=== PATIENT | female | born 1935 | race Caucasian/White ===

== ENCOUNTER 2019-03-31 16:33 | Emergency (ER) | payer OTHER ==
[~2019-03-31] VITALS: Ht 152.4 cm; Wt 83.9 kg
[2019-03-31 17:47] LABS: BASO % 0.6 % (0.0-1.0); EOS # 0.3 10*3/uL (0.0-0.4); EOS % 4.3 % (1.0-4.0); HEMATOCRIT 38.6 % (37.0-47.0); HEMOGLOBIN 12.6 g/dl (12.0-16.0); LYMPH # 1.6 10*3/uL (1.3-4.4); LYMPH % 22.4 % (27.0-41.0); MEAN CORPUSCULAR HGB 31.3 pg (27.0-31.0); MEAN CORPUSCULAR HGB CONC 32.6 g/dl (33.0-37.0); MEAN PLATELET VOLUME 10.5 fl (9.6-12.3); MONO # 0.6 10*3/uL (0.1-1.0); NEUT # 4.4 10*3/uL (2.3-7.9); NEUT % 63.3 % (47.0-73.0); PLATELET COUNT AUTOMATED 237 10*3/uL (130-400); RED BLOOD COUNT 4.02 10*6/uL (4.10-5.10); WHITE BLOOD COUNT 6.9 10*3/uL (4.8-10.8)
[2019-03-31 18:03] LABS: ALBUMIN 3.5 gm/dl (3.1-4.5); CREATININE 1.59 mg/dL (0.55-1.02); POTASSIUM 3.9 mmol/L (3.5-5.1); TOTAL PROTEIN 7.9 gm/dL (6.4-8.2)
== END 2019-03-31 19:06 | disposition home or self-care (01) ==
LOC: ED 16:33
PROVIDERS: Emergency Medicine
DX: J44.9 Chronic obstructive pulmonary disease, unspecified (principal); I10 Essential (primary) hypertension; E11.9 Type 2 diabetes mellitus without complications; I48.91 Unspecified atrial fibrillation; K21.9 Gastro-esophageal reflux disease without esophagitis; E03.9 Hypothyroidism, unspecified

== ENCOUNTER 2019-04-29 11:35 | Emergency (ER) | payer OTHER ==
[~2019-04-29] VITALS: Ht 154.9 cm; Wt 73.5 kg
[2019-04-29 12:32] LABS: BASO % 0.5 % (0.0-1.0); EOS # 0.2 10*3/uL (0.0-0.4); EOS % 4.2 % (1.0-4.0); HEMATOCRIT 39.8 % (37.0-47.0); HEMOGLOBIN 12.6 g/dl (12.0-16.0); LYMPH # 1.9 10*3/uL (1.3-4.4); MEAN CELL VOLUME 96.8 fl (81.0-99.0); MEAN CORPUSCULAR HGB 30.7 pg (27.0-31.0); MEAN CORPUSCULAR HGB CONC 31.7 g/dl (33.0-37.0); MEAN PLATELET VOLUME 10.1 fl (9.6-12.3); MONO # 0.6 10*3/uL (0.1-1.0); MONO % 10.8 % (3.0-9.0); NEUT # 2.9 10*3/uL (2.3-7.9); NEUT % 51.1 % (47.0-73.0); PLATELET COUNT AUTOMATED 358 10*3/uL (130-400); RED BLOOD COUNT 4.11 10*6/uL (4.10-5.10); RED CELL DISTRI WIDTH 14.4 % (0-14.5); WHITE BLOOD COUNT 5.7 10*3/uL (4.8-10.8)
[2019-04-29 12:49] LABS: ALBUMIN 3.4 gm/dl (3.1-4.5); CREATININE 1.45 mg/dL (0.55-1.02); POTASSIUM 4.9 mmol/L (3.5-5.1); TOTAL PROTEIN 7.2 gm/dL (6.4-8.2)
[2019-04-29 12:51] LABS: CPK 90 U/L (26-192)
[2019-04-29 12:52] LABS: TROPONIN I < 0.015 ng/ml (<0.045)
[2019-04-29 13:11] LABS: BILIRUBIN NEGATIVE (NEGATIVE); CLARITY SL CLOUDY (CLEAR); COLOR YELLOW (YELLOW); GLUCOSE NEGATIVE (NEGATIVE); KETONE NEGATIVE (NEGATIVE)
[2019-04-29 13:11] LABS: ABG BASE EXCESS 1.1 mmol/L (-2.0-2.0); ARTERIAL BLOOD GAS PH 7.393 (7.35-7.45)
[2019-04-29 13:12] LABS: BACTERIA TRACE; BLOOD NEGATIVE (NEGATIVE); LEUKO ESTERASE NEGATIVE (NEGATIVE); NITRITE NEGATIVE (NEGATIVE); RBC 0-2 rbc/hpf (0-2); SPECIFIC GRAVITY 1.025 (1.005-1.030); UROBILINOGEN 0.2 E.U./dl (0.2-1.0)
== END 2019-04-29 14:10 | disposition home or self-care (01) ==
LOC: ED 11:35
PROVIDERS: Emergency Medicine
DX: R44.1 Visual hallucinations (principal); R41.0 Disorientation, unspecified; M54.9 Dorsalgia, unspecified; R07.9 Chest pain, unspecified; J44.9 Chronic obstructive pulmonary disease, unspecified; E66.9 Obesity, unspecified; K21.9 Gastro-esophageal reflux disease without esophagitis; I11.0 Hypertensive heart disease with heart failure; I50.9 Heart failure, unspecified; E11.9 Type 2 diabetes mellitus without complications; I48.91 Unspecified atrial fibrillation; E03.9 Hypothyroidism, unspecified; Z91.041 Radiographic dye allergy status; W19.XXXA Unspecified fall, initial encounter; Y93.89 Activity, other specified; Y92.128 Other place in nursing home as the place of occurrence of the external cause; Y99.8 Other external cause status

== ENCOUNTER 2019-05-11 20:51 | Emergency (ER) | payer OTHER ==
[~2019-05-11] VITALS: Ht 162.5 cm; Wt 90.8 kg
== END 2019-05-11 21:30 | disposition home or self-care (01) ==
LOC: ED 20:51
DX: R00.1 Bradycardia, unspecified (principal); L98.9 Disorder of the skin and subcutaneous tissue, unspecified; J44.9 Chronic obstructive pulmonary disease, unspecified; I10 Essential (primary) hypertension; K21.9 Gastro-esophageal reflux disease without esophagitis; E11.9 Type 2 diabetes mellitus without complications; I48.91 Unspecified atrial fibrillation; E03.9 Hypothyroidism, unspecified; Z91.041 Radiographic dye allergy status

== ENCOUNTER 2019-09-13 17:24 | Inpatient (IN) | payer OTHER ==
[~2019-09-13] VITALS: Ht 154.9 cm; Wt 65.4 kg
[2019-09-13 17:38] LABS: ABG BASE EXCESS 1.2 mmol/L (-2.0-2.0); ARTERIAL BLOOD GAS PH 7.424 (7.35-7.45)
[2019-09-13 17:47] VITALS: BP 149/53
[2019-09-13 18:02] LABS: BASO # 0.1 10*3/uL (0.0-0.1); BASO % 0.6 % (0.0-1.0); EOS # 0.5 10*3/uL (0.0-0.4); HEMATOCRIT 44.1 % (37.0-47.0); LYMPH # 1.7 10*3/uL (1.3-4.4); LYMPH % 21.6 % (27.0-41.0); MEAN CELL VOLUME 92.3 fl (81.0-99.0); MEAN CORPUSCULAR HGB 29.5 pg (27.0-31.0); MEAN PLATELET VOLUME 10.5 fl (9.6-12.3); MONO # 0.6 10*3/uL (0.1-1.0); MONO % 7.5 % (3.0-9.0); NEUT # 4.9 10*3/uL (2.3-7.9); PLATELET COUNT AUTOMATED 245 10*3/uL (130-400); RED BLOOD COUNT 4.78 10*6/uL (4.10-5.10); RED CELL DISTRI WIDTH 16.6 % (0-14.5); WHITE BLOOD COUNT 7.7 10*3/uL (4.8-10.8)
[2019-09-13 18:13] LABS: ACT PARTIAL THROMBO TIME 26.8 SECONDS (20.0-32.1); INTERNATIONAL NORM RATIO 1.1 (2.0-3.5)
[2019-09-13 18:19] LABS: ALBUMIN 2.5 gm/dl (3.1-4.5); CREATININE 1.85 mg/dL (0.55-1.02); POTASSIUM 3.7 mmol/L (3.5-5.1); TOTAL PROTEIN 9.9 gm/dL (6.4-8.2); TROPONIN I 0.043 ng/ml (<0.045)
[2019-09-13 18:29] VITALS: BP 134/51
[2019-09-13 18:56] VITALS: BP 127/46
[2019-09-13 20:19] VITALS: BP 102/48
[2019-09-13 21:11] VITALS: BP 148/51
[2019-09-13] MEDS ORDERED: AMLODIPINE BESYL5 MG PO (22:34)
[2019-09-13] MEDS ORDERED: VENLAFAXINE H37.5 M5 PO (22:34)
[2019-09-13] MEDS ORDERED: LEVOTHYROXINE125 MCG PO (22:35)
[2019-09-13] MEDS ORDERED: Lopressor25 MG PO (22:36)
[2019-09-13] MEDS ORDERED: FUROSEMIDE40 MG PO (22:36)
[2019-09-13] MEDS ORDERED: JANUVIA50 MG PO (22:36)
[2019-09-13] MEDS ORDERED: FAMOTIDINE20 M1 PO (22:39)
[2019-09-13] MEDS ORDERED: AMIODARONE HYD200 MG PO (22:39)
[2019-09-13] MEDS ORDERED: SERTRALINE HYDR25 MG PO (22:40)
[2019-09-13] MEDS ORDERED: FLUTICASONE-SA1 EAC4 INH (22:43)
[2019-09-13] MEDS ORDERED: LOSARTAN POTASS50 M1 PO (22:44)
[2019-09-13] MEDS ORDERED: MELATONIN5 M1 PO (22:45)
[2019-09-13] MEDS ORDERED: FEROSUL325 M1 PO (22:46)
[2019-09-13] MEDS ORDERED: VITAMIN B-121000 MC2 PO (22:46)
[2019-09-13] MEDS ORDERED: ATORVASTATIN CA40 M1 PO (22:47)
[2019-09-13] MEDS ORDERED: TYLENOL325 M3 PO (22:49)
[2019-09-13] MEDS ORDERED: ARTIFICIAL TEAR1514 OP (22:50)
[2019-09-13] MEDS ORDERED: DESOWEN T (22:51)
[2019-09-13] MEDS ORDERED: Ipratropium Brom3 ML INH (22:51)
[2019-09-13] MEDS ORDERED: MILK OF MA400 MG/52 PO (22:52)
[2019-09-13] MEDS ORDERED: KETOCONAZOLE S120 M1 T (22:52)
[2019-09-13] MEDS ORDERED: MIRALAX119 GM PO (22:53)
[2019-09-13] MEDS ORDERED: MYLANTA MAXIMU355 M1 PO (22:54)
[2019-09-13] MEDS ORDERED: QUESTRAN POWDE378 GM PO (22:55)
[2019-09-13] MEDS ORDERED: TRESIBA100 UNIT/1 SQ (22:56)
[2019-09-13] MEDS ORDERED: SENOKOT8.6 MG PO (22:56)
[2019-09-13] MEDS ORDERED: ZOFRAN4 MG PO (22:57)
[2019-09-13] MEDS ORDERED: NOVOLOG100 UNIT/1 SC (22:59)
[2019-09-14] VITALS: BP 158/53
[2019-09-14 06:56] LABS: HEMATOCRIT 44.5 % (37.0-47.0); MEAN CELL VOLUME 91.9 fl (81.0-99.0); MEAN CORPUSCULAR HGB 29.5 pg (27.0-31.0); MEAN CORPUSCULAR HGB CONC 32.1 g/dl (33.0-37.0); MEAN PLATELET VOLUME 10.9 fl (9.6-12.3); PLATELET COUNT AUTOMATED 260 10*3/uL (130-400); RED BLOOD COUNT 4.84 10*6/uL (4.10-5.10); RED CELL DISTRI WIDTH 16.4 % (0-14.5)
[2019-09-14 07:06] LABS: ALBUMIN 2.9 gm/dl (3.1-4.5); CREATININE 1.6 mg/dL (0.55-1.02); POTASSIUM 4.3 mmol/L (3.5-5.1); TOTAL PROTEIN 11.1 gm/dL (6.4-8.2)
[2019-09-14 07:40] LABS: TOTAL CELLS COUNTED 100 #CELLS
[2019-09-14 07:41] LABS: PLATELET SUFFICIENCY NORMAL (NORMAL)
[2019-09-14 08:00] VITALS: BP 138/68
[2019-09-14 12:00] VITALS: BP 140/66
[2019-09-14 16:00] VITALS: BP 132/73
[2019-09-14 20:00] VITALS: BP 159/64
[2019-09-15] VITALS: BP 147/50
[2019-09-15 06:47] LABS: BASO % 0.1 % (0.0-1.0); HEMATOCRIT 41.1 % (37.0-47.0); LYMPH # 1.9 10*3/uL (1.3-4.4); LYMPH % 15.4 % (27.0-41.0); MEAN CELL VOLUME 92.2 fl (81.0-99.0); MEAN CORPUSCULAR HGB CONC 32.6 g/dl (33.0-37.0); MONO # 0.6 10*3/uL (0.1-1.0); MONO % 4.9 % (3.0-9.0); NEUT # 9.8 10*3/uL (2.3-7.9); PLATELET COUNT AUTOMATED 254 10*3/uL (130-400); RED BLOOD COUNT 4.46 10*6/uL (4.10-5.10); RED CELL DISTRI WIDTH 16.3 % (0-14.5); WHITE BLOOD COUNT 12.4 10*3/uL (4.8-10.8)
[2019-09-15 07:07] LABS: CREATININE 1.54 mg/dL (0.55-1.02); POTASSIUM 4.2 mmol/L (3.5-5.1)
[2019-09-15 08:00] VITALS: BP 134/50
[2019-09-15 12:00] VITALS: BP 132/52
[2019-09-15 16:00] VITALS: BP 144/47
[2019-09-15 20:00] VITALS: BP 168/47
[2019-09-16] VITALS: BP 132/43
[2019-09-16 05:00] VITALS: BP 143/56
[2019-09-16 06:12] LABS: BASO % 0.1 % (0.0-1.0); HEMATOCRIT 38.8 % (37.0-47.0); LYMPH # 1.6 10*3/uL (1.3-4.4); LYMPH % 14.5 % (27.0-41.0); MEAN CELL VOLUME 90.7 fl (81.0-99.0); MEAN CORPUSCULAR HGB 29.9 pg (27.0-31.0); MEAN PLATELET VOLUME 11.2 fl (9.6-12.3); MONO # 0.7 10*3/uL (0.1-1.0); MONO % 5.8 % (3.0-9.0); NEUT # 8.9 10*3/uL (2.3-7.9); NEUT % 78.9 % (47.0-73.0); PLATELET COUNT AUTOMATED 273 10*3/uL (130-400); RED BLOOD COUNT 4.28 10*6/uL (4.10-5.10); RED CELL DISTRI WIDTH 16.2 % (0-14.5); WHITE BLOOD COUNT 11.3 10*3/uL (4.8-10.8)
[2019-09-16 06:24] LABS: CREATININE 1.56 mg/dL (0.55-1.02); POTASSIUM 3.9 mmol/L (3.5-5.1)
[2019-09-16 08:00] VITALS: BP 148/40
[2019-09-16 12:00] VITALS: BP 137/42
[2019-09-16 16:00] VITALS: BP 129/64
[2019-09-16 20:00] VITALS: BP 139/38
[2019-09-17] VITALS: BP 146/58
[2019-09-17 08:00] VITALS: BP 137/51
[2019-09-17] MEDS ORDERED: DOXYCYCLINE100 M3 PO (10:37)
[2019-09-17] MEDS ORDERED: PREDNISONE10 MG PO (10:37)
[2019-09-17 12:00] VITALS: BP 129/62
== END 2019-09-17 16:24 | disposition other institution (70) | DRG 177 ==
LOC: ED 17:24 → EDHOLD 18:48 → 4E 18:48
PROVIDERS: Emergency Medicine; Family Medicine; Internal Medicine; Student in an Organized Health Care Education/Training Program; ADMIT Internal Medicine
DX: J15.6 Pneumonia due to other Gram-negative bacteria (principal); E43 Unspecified severe protein-calorie malnutrition; J96.21 Acute and chronic respiratory failure with hypoxia; I50.23 Acute on chronic systolic (congestive) heart failure; I13.0 Hypertensive heart and chronic kidney disease with heart failure and stage 1 through stage 4 chronic kidney disease, or unspecified chronic kidney disease; E87.1 Hypo-osmolality and hyponatremia; J44.0 Chronic obstructive pulmonary disease with (acute) lower respiratory infection; D68.59 Other primary thrombophilia; J44.1 Chronic obstructive pulmonary disease with (acute) exacerbation; K21.9 Gastro-esophageal reflux disease without esophagitis; I25.10 Atherosclerotic heart disease of native coronary artery without angina pectoris; M19.90 Unspecified osteoarthritis, unspecified site; N18.3 Chronic kidney disease, stage 3 (moderate); I44.7 Left bundle-branch block, unspecified; E11.65 Type 2 diabetes mellitus with hyperglycemia; D72.1 Eosinophilia; E66.3 Overweight; E11.22 Type 2 diabetes mellitus with diabetic chronic kidney disease; G47.00 Insomnia, unspecified; E53.8 Deficiency of other specified B group vitamins; F32.5 Major depressive disorder, single episode, in full remission; E11.51 Type 2 diabetes mellitus with diabetic peripheral angiopathy without gangrene; E03.9 Hypothyroidism, unspecified; I48.0 Paroxysmal atrial fibrillation; Z20.828 Contact with and (suspected) exposure to other viral communicable diseases; Z95.2 Presence of prosthetic heart valve; Z95.1 Presence of aortocoronary bypass graft; Z90.710 Acquired absence of both cervix and uterus; Z82.49 Family history of ischemic heart disease and other diseases of the circulatory system; Z80.9 Family history of malignant neoplasm, unspecified; Z91.041 Radiographic dye allergy status; Z91.013 Allergy to seafood; Z79.4 Long term (current) use of insulin; Z79.899 Other long term (current) drug therapy; Z68.28 Body mass index [BMI] 28.0-28.9, adult

== ENCOUNTER 2019-10-11 07:23 | Emergency (ER) | payer OTHER ==
[~2019-10-11 07:23] MED LIST: AMIODARONE HYD200 MG PO; AMLODIPINE BESYL5 MG PO; ARTIFICIAL TEAR1514 OP; ATORVASTATIN CA40 M1 PO; DESOWEN T; DOXYCYCLINE100 M3 PO; FAMOTIDINE20 M1 PO; FEROSUL325 M1 PO; FLUTICASONE-SA1 EAC4 INH; FUROSEMIDE40 MG PO; Ipratropium Brom3 ML INH; JANUVIA50 MG PO; KETOCONAZOLE S120 M1 T; LEVOTHYROXINE125 MCG PO; LOSARTAN POTASS50 M1 PO; Lopressor25 MG PO; MELATONIN5 M1 PO; MILK OF MA400 MG/52 PO; MIRALAX119 GM PO; MYLANTA MAXIMU355 M1 PO; NOVOLOG100 UNIT/1 SC; PREDNISONE10 MG PO; QUESTRAN POWDE378 GM PO; SENOKOT8.6 MG PO; SERTRALINE HYDR25 MG PO; TRESIBA100 UNIT/1 SQ; TYLENOL325 M3 PO; VENLAFAXINE H37.5 M5 PO; VITAMIN B-121000 MC2 PO; ZOFRAN4 MG PO
[2019-10-11 10:01] LABS: BASO # 0.1 10*3/uL (0.0-0.1); BASO % 0.4 % (0.0-1.0); EOS # 0.5 10*3/uL (0.0-0.4); EOS % 4.1 % (1.0-4.0); HEMATOCRIT 45.3 % (37.0-47.0); LYMPH # 1.4 10*3/uL (1.3-4.4); LYMPH % 12.4 % (27.0-41.0); MEAN CELL VOLUME 96.4 fl (81.0-99.0); MEAN CORPUSCULAR HGB 30.2 pg (27.0-31.0); MEAN CORPUSCULAR HGB CONC 31.3 g/dl (33.0-37.0); MEAN PLATELET VOLUME 11.5 fl (9.6-12.3); MONO % 8.6 % (3.0-9.0); NEUT # 8.4 10*3/uL (2.3-7.9); NEUT % 73.6 % (47.0-73.0); PLATELET COUNT AUTOMATED 198 10*3/uL (130-400); RED CELL DISTRI WIDTH 16.2 % (0-14.5); WHITE BLOOD COUNT 11.4 10*3/uL (4.8-10.8)
[2019-10-11 10:08] LABS: CREATININE 1.61 mg/dL (0.55-1.02)
[2019-10-11 10:10] LABS: ACT PARTIAL THROMBO TIME 24.7 SECONDS (20.0-32.1)
[2019-10-11 10:13] LABS: POTASSIUM 4.8 mmol/L (3.5-5.1)
== END 2019-10-11 10:30 | disposition short-term general hospital (02) ==
LOC: ED 07:23
PROVIDERS: Emergency Medicine
DX: S06.5X1A Traumatic subdural hemorrhage with loss of consciousness of 30 minutes or less, initial encounter (principal); I25.10 Atherosclerotic heart disease of native coronary artery without angina pectoris; J44.9 Chronic obstructive pulmonary disease, unspecified; E78.5 Hyperlipidemia, unspecified; I48.91 Unspecified atrial fibrillation; I13.0 Hypertensive heart and chronic kidney disease with heart failure and stage 1 through stage 4 chronic kidney disease, or unspecified chronic kidney disease; E11.22 Type 2 diabetes mellitus with diabetic chronic kidney disease; N18.3 Chronic kidney disease, stage 3 (moderate); M19.90 Unspecified osteoarthritis, unspecified site; Z91.013 Allergy to seafood; Z79.899 Other long term (current) drug therapy; Z79.4 Long term (current) use of insulin; W18.39XA Other fall on same level, initial encounter; Y93.89 Activity, other specified; Y92.89 Other specified places as the place of occurrence of the external cause; Y99.8 Other external cause status

== ENCOUNTER 2019-11-10 16:08 | Emergency (ER) | payer OTHER ==
[~2019-11-10] VITALS: Ht 154.9 cm; Wt 66.7 kg
[2019-11-10] MEDS ORDERED: TRAMADOL HCL50 MG PO (18:38)
[2019-11-10] MEDS ORDERED: ULTRAM50 MG PO (18:51)
== END 2019-11-10 19:30 | disposition other institution (70) ==
LOC: ED 16:08
DX: S22.41XA Multiple fractures of ribs, right side, initial encounter for closed fracture (principal); Z90.710 Acquired absence of both cervix and uterus; Z95.1 Presence of aortocoronary bypass graft; Z90.49 Acquired absence of other specified parts of digestive tract; Z79.899 Other long term (current) drug therapy; Z79.4 Long term (current) use of insulin; Z91.013 Allergy to seafood; W18.30XA Fall on same level, unspecified, initial encounter; Y93.89 Activity, other specified; Y92.128 Other place in nursing home as the place of occurrence of the external cause; Y99.9 Unspecified external cause status

== ENCOUNTER 2020-01-06 10:42 | Emergency (ER) | payer OTHER ==
[~2020-01-06] VITALS: Ht 154.9 cm; Wt 65.8 kg
== END 2020-01-06 13:22 | disposition other institution (70) ==
LOC: ED 10:42
DX: S09.90XA Unspecified injury of head, initial encounter (principal); S00.83XA Contusion of other part of head, initial encounter; T14.8XXA Other injury of unspecified body region, initial encounter; Z23 Encounter for immunization; Z79.899 Other long term (current) drug therapy; Z91.013 Allergy to seafood; Z79.4 Long term (current) use of insulin; W19.XXXA Unspecified fall, initial encounter; Y93.89 Activity, other specified; Y92.89 Other specified places as the place of occurrence of the external cause; Y99.8 Other external cause status

== ENCOUNTER 2020-01-12 20:29 | Emergency (ER) | payer OTHER ==
[~2020-01-12] VITALS: Wt 54.9 kg
[~2020-01-12 20:29] MED LIST changes: +TRAMADOL HCL50 MG PO; +ULTRAM50 MG PO
[2020-01-13] MEDS ORDERED: NORCO 5-325 TA1 EACH PO (02:13)
== END 2020-01-13 02:48 | disposition other institution (70) ==
LOC: ED 20:29
DX: M48.54XA Collapsed vertebra, not elsewhere classified, thoracic region, initial encounter for fracture (principal); I25.10 Atherosclerotic heart disease of native coronary artery without angina pectoris; I13.0 Hypertensive heart and chronic kidney disease with heart failure and stage 1 through stage 4 chronic kidney disease, or unspecified chronic kidney disease; E11.22 Type 2 diabetes mellitus with diabetic chronic kidney disease; I50.9 Heart failure, unspecified; N18.30 Chronic kidney disease, stage 3 unspecified; K21.9 Gastro-esophageal reflux disease without esophagitis; E78.5 Hyperlipidemia, unspecified; Z91.013 Allergy to seafood; Z91.041 Radiographic dye allergy status; Z79.899 Other long term (current) drug therapy; Z79.4 Long term (current) use of insulin

== ENCOUNTER 2020-02-18 13:51 | Emergency (ER) | payer OTHER ==
[~2020-02-18 13:51] MED LIST changes: +NORCO 5-325 TA1 EACH PO
[2020-02-18 15:31] LABS: INTERNATIONAL NORM RATIO 1.2 (2.0-3.5)
[2020-02-18 15:39] LABS: ALBUMIN 2.3 gm/dl (3.1-4.5); CREATININE 1.56 mg/dL (0.55-1.02); POTASSIUM 3.5 mmol/L (3.5-5.1); TOTAL PROTEIN 9.4 gm/dL (6.4-8.2)
[2020-02-18 15:42] LABS: TROPONIN I 0.096 ng/ml (<0.045)
[2020-02-18 16:00] LABS: MEAN CELL VOLUME 94.3 fl (81.0-99.0); MEAN CORPUSCULAR HGB CONC 32.9 g/dl (33.0-37.0); MEAN PLATELET VOLUME 11.1 fl (9.6-12.3); PLATELET COUNT AUTOMATED 212 10*3/uL (130-400); RED BLOOD COUNT 4.35 10*6/uL (4.10-5.10); RED CELL DISTRI WIDTH 14.3 % (0-14.5); WHITE BLOOD COUNT 5.7 10*3/uL (4.8-10.8)
[2020-02-18 16:01] LABS: BASO % 0.2 % (0.0-1.0); EOS # 0.1 10*3/uL (0.0-0.4); EOS % 2.5 % (1.0-4.0); LYMPH # 1.4 10*3/uL (1.3-4.4); LYMPH % 24.1 % (27.0-41.0); MONO # 0.5 10*3/uL (0.1-1.0); MONO % 9.1 % (3.0-9.0); NEUT # 3.6 10*3/uL (2.3-7.9); NEUT % 63.7 % (47.0-73.0)
== END 2020-02-18 19:36 | disposition home or self-care (01) ==
LOC: ED 13:51
PROVIDERS: Physician Assistant
DX: U07.1 COVID-19 (principal); I12.9 Hypertensive chronic kidney disease with stage 1 through stage 4 chronic kidney disease, or unspecified chronic kidney disease; E11.22 Type 2 diabetes mellitus with diabetic chronic kidney disease; N18.30 Chronic kidney disease, stage 3 unspecified; R77.8 Other specified abnormalities of plasma proteins; I48.91 Unspecified atrial fibrillation; Z88.8 Allergy status to other drugs, medicaments and biological substances

== ENCOUNTER 2020-02-21 12:22 | Emergency (ER) | payer OTHER ==
[~2020-02-21] VITALS: Ht 172.7 cm; Wt 53.1 kg
[2020-02-21 15:34] LABS: HEMATOCRIT 38.1 % (37.0-47.0); LYMPH # 0.9 10*3/uL (1.3-4.4); LYMPH % 22.4 % (27.0-41.0); MEAN CELL VOLUME 93.8 fl (81.0-99.0); MEAN CORPUSCULAR HGB 31.3 pg (27.0-31.0); MEAN CORPUSCULAR HGB CONC 33.3 g/dl (33.0-37.0); MEAN PLATELET VOLUME 11.5 fl (9.6-12.3); MONO # 0.1 10*3/uL (0.1-1.0); MONO % 2.9 % (3.0-9.0); NEUT # 3.1 10*3/uL (2.3-7.9); NEUT % 74.2 % (47.0-73.0); PLATELET COUNT AUTOMATED 232 10*3/uL (130-400); RED BLOOD COUNT 4.06 10*6/uL (4.10-5.10); WHITE BLOOD COUNT 4.2 10*3/uL (4.8-10.8)
[2020-02-21 15:49] LABS: ALBUMIN 2.2 gm/dl (3.1-4.5); CREATININE 1.38 mg/dL (0.55-1.02); POTASSIUM 3.7 mmol/L (3.5-5.1); TOTAL PROTEIN 9.3 gm/dL (6.4-8.2)
[2020-02-21 15:50] LABS: ACT PARTIAL THROMBO TIME 50.5 SECONDS (20.0-32.1); INTERNATIONAL NORM RATIO 1.1 (2.0-3.5)
== END 2020-02-21 16:42 | disposition short-term general hospital (02) ==
LOC: ED 12:22
PROVIDERS: Emergency Medicine
DX: S06.300A Unspecified focal traumatic brain injury without loss of consciousness, initial encounter (principal); I10 Essential (primary) hypertension; K21.9 Gastro-esophageal reflux disease without esophagitis; E03.9 Hypothyroidism, unspecified; E11.9 Type 2 diabetes mellitus without complications; Z86.73 Personal history of transient ischemic attack (TIA), and cerebral infarction without residual deficits; Z91.041 Radiographic dye allergy status; Z91.013 Allergy to seafood; Z79.899 Other long term (current) drug therapy; Z79.2 Long term (current) use of antibiotics; Z79.4 Long term (current) use of insulin; Z90.49 Acquired absence of other specified parts of digestive tract; Z90.710 Acquired absence of both cervix and uterus; Z98.61 Coronary angioplasty status; W05.0XXA Fall from non-moving wheelchair, initial encounter; Y93.89 Activity, other specified; Y92.128 Other place in nursing home as the place of occurrence of the external cause; Y99.8 Other external cause status

== ENCOUNTER 2020-06-24 19:26 | Emergency (ER) | payer OTHER ==
[~2020-06-24] VITALS: Ht 154.9 cm; Wt 51.4 kg
[2020-06-24 23:26] VITALS: BP 134/62
== END 2020-06-25 08:30 | disposition home or self-care (01) ==
LOC: ED 19:26
DX: S42.391A Other fracture of shaft of right humerus, initial encounter for closed fracture (principal); S81.811A Laceration without foreign body, right lower leg, initial encounter; Z91.041 Radiographic dye allergy status; Z91.013 Allergy to seafood; Z79.899 Other long term (current) drug therapy; Z79.2 Long term (current) use of antibiotics; Z79.4 Long term (current) use of insulin; Z90.49 Acquired absence of other specified parts of digestive tract; Z98.61 Coronary angioplasty status; Z90.711 Acquired absence of uterus with remaining cervical stump; W01.0XXA Fall on same level from slipping, tripping and stumbling without subsequent striking against object, initial encounter; Y93.89 Activity, other specified; Y92.89 Other specified places as the place of occurrence of the external cause; Y99.8 Other external cause status